=== PATIENT | male | born 1965 | race Caucasian/White ===

== ENCOUNTER → 2022-11-07 11:37 | Outpatient (CLI) | payer OTHER, SELFPAY ==
--- NOTE | ~2022-11-07 | MR_ITS ---
EXAMINATION: MR hip LT w con DATE: 11/07/2022 13:33 INDICATION: Left hip labral injury presenting with left thigh/groin pain. TECHNIQUE: Magnetic resonance (MR) arthrogram of the left hip was performed following intra-articular gadolinium contrast injection and without intravenous contrast. Details of the hip joint injection h ave been dictated separately. Sequences included small field of view of the left hip with axial and s agittal T1-weighted FS SE and T2-weighted FS FSE and coronal T1-weighted SE and T2-weighted FS FSE. Additional T1-weighted FGRE images in a radial pattern oriented orthogonal to the acetabular rim were obtained for evaluation of the labrum. COMPARISON: None. FINDINGS: Bones/labrum/cartilage: Mild S-shaped curvature and moderate to severe spondylosis in the visualized mid to lower lumbar spin e. Bone alignment is otherwise normal. No fracture, avascular necrosis or pathologic marrow replacing process. There is diffuse mild increased T2 signal throughout the labrum without corresponding contr ast enhancement consistent with likely degeneration without discrete tear. There is a small T2 hyperi ntense but nonenhancing ganglion cyst arising along the anterior rim of the glenoid. Mild to moderate left hip osteoarthritis with partial thickness cartilage loss involving greater than 50% the cartila ge thickness at the anterosuperior and posterior aspects of the joint space. There is minimal subarti cular edema-like signal change underlying the anterosuperior left acetabulum. There is suggestion of a tear at the superolateral right acetabular labrum on the large [id number] images. Prominent like ly osteoarthritis related subarticular cystic change at the anteroinferior right acetabulum suggestin g overlying high-grade chondromalacia. Soft tissues: Normal and symmetric muscle bulk and signal in the pelvis and visualized proximal thighs. The bilater al iliopsoas, gluteal and proximal hamstring tendons are normal. Limited evaluation of visceral organ s of the pelvis is unremarkable. Small bilateral fat-containing inguinal hernias. No pathologically e nlarged pelvic/inguinal lymphadenopathy. IMPRESSION: 1. Mild to moderate left hip osteoarthritis with mild degeneration without discrete tear of the left acetabular labrum. 2. Osteoarthritis at the right hip with subarticular cystlike changes at the anteroinferior right arelis tabulum and with suggestion of more discrete linear tear at the base of the superolateral right aceta bular labrum. 3. Moderate to severe lumbar spondylosis. Reviewed, dictated and finalized at location A. OUTCOMES IMPRESSION: 1. Mild to moderate left hip osteoarthritis with mild degeneration without disc rete tear of the left acetabular labrum. 2. Osteoarthritis at the right hip with subarticular cystlike changes at the an teroinferior right acetabulum and with suggestion of more discrete linear tear at the base of the superolateral right acetabular labrum. 3. Moderate to severe lumbar spondylosis.
--- NOTE | ~2022-11-07 | XR_ITS ---
XR fl inj hip LT for MR/CT DATE: 11/07/2022 12:56 INDICATION: Left hip labral injury. Left groin and thigh pain. TECHNIQUE: The purpose of the procedure, technique and potential complications were discussed with th e patient. The patient indicated understanding and gave consent. Timeout procedure was performed. The skin of the proximal lateral thigh was prepared with sterile Betadine solution. Sterile drape was applied. 1% lidocaine local anesthetic was administered to the skin and underlying subcutaneous tiss ues at the proximal lateral thigh. A 22-gauge spinal needle was introduced into the right hip joint s pace near the junction of the femoral head and neck using fluoroscopic guidance. Approximately 10 CC of mixed gadolinium, Omnipaque 350 and 1% lidocaine solution was injected into th e right hip joint, with fluoroscopy performed to confirm intra-articular position of the contrast mat erial. A spot image was saved. The patient was very cooperative and tolerated the procedure well, without complaint or apparent comp lication. IMPRESSION: Fluoroscopically guided pre-MRI left hip intra-articular injection of gadolinium, Omnipaq ue 350 and local anesthetic Reviewed, dictated and finalized at [facility]. Reviewed, dictated and finalized at location B. NO SLOT SUPERVISOR IMPRESSION: Fluoroscopically guided pre-MRI left hip intra-articular injection of gadolinium, Omnipaque 350 and local anesthetic
== END ==
PROVIDERS: PCP Physician Assistant Medical
DX: S79.912A Unspecified injury of left hip, initial encounter (principal); M16.0 Bilateral primary osteoarthritis of hip; M43.06 Spondylolysis, lumbar region
CPT/HCPCS: 20610; 73722; 77002; A9577; Q9967